=== PATIENT | male | born 1940 | race Caucasian/White ===

== ENCOUNTER 2020-08-24 10:11 | Emergency (ER) | payer MEDICARE, SELFPAY ==
[2020-08-24 10:12] VITALS: BP 163/74; PULSE 66; RESP 16; TEMP 37.4; O2SAT 98; BMI 24.1
--- NOTE | 2020-08-24 10:12 | DI.RAD.S_ITS ---
PROCEDURE: XR KNEE RT 3V INDICATIONS: fall pain TECHNIQUE: 3 views of the knee were acquired. COMPARISON: None. FINDINGS: Bones: There is a comminuted minimally displaced fracture through the midportion of the patella best seen on lateral view. [id number] medial and patellofemoral compartment narrowing consistent with arthritic change. Soft tissues: Moderate joint effusion. No suspicious soft tissue calcifications. IMPRESSION: Moderate effusion with comminuted minimally displaced mid patellar fracture. Dictated by: Magalie Quiles M.D. on 08/24/2020 at 11:34 Approved by: Magalie Quiles M.D. on 08/24/2020 at 11:35
--- NOTE | 2020-08-24 10:17 | ED.FALL ---
HPI - Fall <TG Newberry - Last Filed: 08/24/20 16:09> General Chief Complaint: Fall Stated Complaint: Right Knee Pain Time Seen by Provider: 08/24/20 10:12 Source: patient and EMS Mode of arrival: EMS History of Present Illness HPI Narrative: 79yo male presents to the ED for right knee pain. Patient states yesterday his left foot caught on some cobblestones while walking and he tripped and fell on his right knee, patient states he also hit his nose. Patient states he was immediately able to get up from the fall, denies any loss of consciousness, vomiting, is not on any blood thinners. Patient states he felt fine dressed today. However, overnight he started to develop more and more pain to his right knee. Today it hurts significantly more and is difficult to walk on, he reports swelling. Patient denies any other injury such as hip pain, ankle pain, chest pain, arm pain, fevers, chills, nausea, vomiting, diarrhea, or any other concerns. Related Data Previous Rx's Medication Instructions Recorded hydrocodone-acetaminophen [[place]] 1 tab PO Q4-6H PRN #14 tab 08/24/20 hydrocodone-acetaminophen [[place]] 1 tab PO Q4-6H PRN #20 tab 08/24/20 Allergies Allergy/AdvReac Type Severity Reaction Status Date / Time No Known Drug Allergies Allergy Verified 08/24/20 10:12 Review of Systems <TG Newberry - Last Filed: 08/24/20 16:09> Review of Systems Narrative: REVIEW OF SYSTEMS: GENERAL: Denies fevers. HENT: No headache, see HPI. CARDIOVASCULAR: No chest pain. RESPIRATORY: No shortness of breath. MSK: Reports right knee pain, see HPI. GASTROINTESTINAL: No nausea or vomiting. MUSCULOSKELETAL: No weakness or injury. INTEGUMENTARY: No rash. Patient History <TG Newberry - Last Filed: 08/24/20 16:09> Medical History No pertinent past medical history Social History Smoking Status: Never smoker Smoking Status: Never smoker alcohol intake frequency: 0-2 drinks per day Alcohol type: beer Substance Use Type: does not use Exam <TG Newberry - Last Filed: 08/24/20 16:09> Initial Vital Signs Initial Vital Signs: Vital Signs Temperature 99.3 F 08/24/20 10:12 Pulse Rate 66 08/24/20 10:12 Respiratory Rate 16 08/24/20 10:12 Blood Pressure 163/74 H 08/24/20 10:12 Pulse Oximetry 98 08/24/20 10:12 PHYSICAL EXAMINATION: GENERAL: Awake and alert. HENT: Normocephalic, atraumatic. EYES: Symmetrical, sclera white, no periorbital swelling. RESPIRATORY: Normal respiratory rate, trachea midline, airway patent. No stridor, nasal flaring or accessory muscle use. MUSCULOSKELETAL: Tenderness over patella and patellar tendon of right knee, pain with drawer test but knee is stable. [id number] amount of swelling, mild ecchymosis. No erythema, lesions, or increased temp. Normal gait and coordination. Equal tone and mass bilaterally. EXTREMITIES: CMS intact. No pedal edema. SKIN: Warm, dry, soft, appropriate color for ethnicity. No lesions, rashes, or wounds. NEURO: Alert and Oriented X 3. No sensory deficits. PSYCH: Appropriate affect and mood. <Rosa Herrera DO - Last Filed: 08/25/20 07:58> Initial Vital Signs Initial Vital Signs: Vital Signs Temperature 99.3 F 08/24/20 10:12 Pulse Rate 66 08/24/20 10:12 Respiratory Rate 16 08/24/20 10:12 Blood Pressure 163/74 H 08/24/20 10:12 Pulse Oximetry 98 08/24/20 10:12 Course <TG Newberry - Last Filed: 08/24/20 16:09> Course Course Narrative: Patient requesting pain medication, discussed risks and benefits to narcotics. 1137: I spoke with Dr. Gonzales, orthopedic, about x-ray. Recommended knee immobilizer and follow-up in clinic. Patient was updated on plan of care, requesting another dose of Vicodin, medications ordered. Orders Ordered: Discontinued Medications Hydrocodone Bitart/Acetaminophen (Hydrocodone/Acet 5/325 Tablet) 1 tab PO NOW ONE Stop: 08/24/20 10:54 Last Admin: 08/24/20 11:02 Dose: 1 tab Documented by: MYLA Hydrocodone Bitart/Acetaminophen (Hydrocodone/Acet 5/325 Tablet) 1 tab PO NOW ONE Stop: 08/24/20 11:53 Last Admin: 08/24/20 12:00 Dose: 1 tab Documented by: MYLA Consultations Consultation #1: Staffed with Dr. Herrera who also viewed x-ray. Vital Signs Vital signs: Vital Signs - 8 hr 08/24/20 10:12 08/24/20 11:55 08/24/20 12:44 Temperature 99.3 F Pulse Rate 66 65 Respiratory Rate 16 16 Blood Pressure 163/74 H 175/85 H 126/88 Pulse Oximetry 98 97 <Rosa Herrera DO - Last Filed: 08/25/20 07:58> Orders Ordered: Discontinued Medications Hydrocodone Bitart/Acetaminophen (Hydrocodone/Acet 5/325 Tablet) 1 tab PO NOW ONE Stop: 08/24/20 10:54 Last Admin: 08/24/20 11:02 Dose: 1 tab Documented by: MYLA Hydrocodone Bitart/Acetaminophen (Hydrocodone/Acet 5/325 Tablet) 1 tab PO NOW ONE Stop: 08/24/20 11:53 Last Admin: 08/24/20 12:00 Dose: 1 tab Documented by: MYLA Vital Signs Vital signs: Vital Signs - 8 hr 08/24/20 10:12 08/24/20 11:55 08/24/20 12:44 Temperature 99.3 F Pulse Rate 66 65 Respiratory Rate 16 16 Blood Pressure 163/74 H 175/85 H 126/88 Pulse Oximetry 98 97 MDM - Fall <TG Newberry - Last Filed: 08/24/20 16:09> Medical Records Attestation: I reviewed the patient's medical records. Lab Data Attestation: I reviewed the patient's lab results. Imaging Data Extremity x-ray #1: Radiologist's Impression: [address] [id number] ReportSigned Patient: Gil Aguilar AMR#: [id number]: 3Acct:[id number]/Sex: 79 / MDate of Service: 08/24/20Loc: EDAccession Number: [id number] Procedure: XR knee RT 3V Ordering Provider: Rosa Herrera D.O. PROCEDURE: XR KNEE RT 3V INDICATIONS: fall pain TECHNIQUE: 3 views of the knee were acquired. COMPARISON: None. FINDINGS: Bones: There is a comminuted minimally displaced fracture through the midportion of the patella best seen on lateral view. [id number] medial and patellofemoral compartment narrowing consistent with arthritic change. Soft tissues: Moderate joint effusion. No suspicious soft tissue calcifications. IMPRESSION: Moderate effusion with comminuted minimally displaced mid patellar fracture. Dictated by: Magalie Quiles M.D. on 08/24/2020 at 11:34 Approved by: Magalie Quiles M.D. on 08/24/2020 at 11:35 [facility] Narrative Medical decision making narrative: History and examination consistent with patella fracture as seen on x-ray. Less concern for other injuries due to benign examination. No CT of head indicated at this time, no concerning symptoms such as syncope or vomiting after fall. Patient not on any blood thinners. Discussed benefits and wrist to prescribing narcotic pain medication. Patient accepted, Vicodin prescribed. Patient was placed in knee immobilizer, crutches given. He was instructed to follow up with the orthopedic as suggested. Return precautions given for new or worsening symptoms. Discharge Plan Departure Patient Disposition: Home Clinical Impression: Patella fracture Qualifiers: Encounter type: initial encounter Fracture type: closed Fracture morphology: unspecified fracture morphology Fracture alignment: displaced Laterality: right Qualified Code(s): S82.001A - Unspecified fracture of right patella, initial encounter for closed fracture Instructions: DI for Patella Fracture, How to Prevent Falls Activity Restrictions/Additional Instructions: Thank you for entrusting me with your care today. As discussed, it appears you have a patella fracture to right knee. I spoke with orthopedic on-call, he recommended a straight leg immobilizer, keep this in place as much as possible. It is important that you follow-up in the orthopedic clinic. Be low as the phone number to call today or tomorrow to make an appointment. I prescribed you pain medication. You have been prescribed a narcotic medication, this medication can make you drowsy. Do not drive while using this medication or perform activities that require mental alertness. These medications can also make you constipated, please use [id number]-dheniys docusate sodium as needed for constipation. This medication also contains Tylenol, do not take extra Tylenol. This was sent to [facility] in [place]. Return emergency department for any new or worsening symptoms. Prescriptions: New hydrocodone-acetaminophen [[place]] 5-325 mg tablet 1 tab PO Q4-6H PRN (Reason: pain) Qty: 14 RF: 0 hydrocodone-acetaminophen [[place]] 5-325 mg tablet 1 tab PO Q4-6H PRN (Reason: pain) Qty: 20 RF: 0 Referrals: Keven Gonzales MD [Physician] - <Rosa Herrera DO - Last Filed: 08/25/20 07:58> Cosign ED Attending Timothyature Attestation: I was immediately available in the department for consultation. Documentation has been reviewed. I agree with assessment and plan.
[2020-08-24] MEDS: HYDROCODONE/ACET 5/325 TABLET 1 TAB PO ×2 (11:02→12:00)
[2020-08-24 11:55] VITALS: BP 175/85; PULSE 65; RESP 16; O2SAT 97
[2020-08-24 12:44] VITALS: BP 126/88
== END 2020-08-24 12:45 | disposition home or self-care (01) ==
PROVIDERS: Emergency Provider Nurse Practitioner
DX: S82.001A Unspecified fracture of right patella, initial encounter for closed fracture (principal); W01.0XXA Fall on same level from slipping, tripping and stumbling without subsequent striking against object, initial encounter
CPT/HCPCS: 73562; 99283

== ENCOUNTER 2021-06-09 10:27 | Emergency (ER) | payer MEDICARE, SELFPAY ==
[2021-06-09] VITALS (14 sets, daily range): BP systolic 154–177; BP diastolic 78–106; PULSE 64–91; RESP 18–34; TEMP 36.6; O2SAT 91–97
--- NOTE | 2021-06-09 10:35 | DI.RAD.S_ITS ---
PROCEDURE: XR CHEST 1V INDICATIONS: chest pain TECHNIQUE: One view of the chest was acquired. COMPARISON: [facility], CR, XR CHEST 1 VIEW, 04/30/2020, 11:27. FINDINGS: Surgical changes and devices: Postsurgical changes are redemonstrated in the mediastinum. Lungs and pleura: There are slightly low lung volumes. Mild pulmonary vascular prominence in the lung bases likely reflects vascular crowding with likely associated mild atelectasis. No pleural effusions or pneumothorax. Mediastinum: Mediastinal contours appear unchanged. Heart size is enlarged. Bones and chest wall: No suspicious bony lesions. Overlying soft tissues appear unremarkable. IMPRESSION: 1. Slightly low lung volumes with vascular crowding and likely atelectasis in the lung bases. No definite acute cardiopulmonary disease. Dictated by: Judson Foley M.D. on 06/09/2021 at 10:18 Approved by: Judson Foley M.D. on 06/09/2021 at 10:21
--- NOTE | 2021-06-09 10:48 | ED.ABDPAIN ---
HPI - Abdominal Pain General Chief Complaint: Neuro Symptoms/Deficit Stated Complaint: EXTREME STOMACH PAINS, ACTING FUNNY Time Seen by Provider: 06/09/21 10:44 History of Present Illness HPI narrative: Patient is a 80-year-old male who with history of diabetes, CAD with CABG, hypertension hyperlipidemia presenting with sudden onset of confusion and 2 days of abdominal pain. states that he has episodes of brief confusion where he put his hands up and he does not know where he is or what is happening. All the happened today and the car they were on their way to [place] when he had sudden episode of confusion however he was complaining of severe abdominal pain as well. He started pushing all of the buttons on the dashboard he was not able to communicate what he was doing. He did not have any slurring of speech she was moving all extremities. He has not had any fever or chills. No nausea or vomiting. He states that his abdomen no longer hurts. He seems to be back to normal and at his baseline. He denies any chest pain or palpitations. Related Data Home Medications Medication Instructions Recorded Confirmed buspirone 10 mg tablet 10 mg PO TID PRN 06/09/21 06/09/21 carvedilol 6.25 mg tablet 6.25 mg PO BID 06/09/21 06/09/21 finasteride 5 mg tablet 5 mg PO DAILY 06/09/21 06/09/21 insulin glargine 100 unit/mL (3 14 unit SUBCUT BID 06/09/21 06/09/21 mL) subcutaneous pen (Lantus Solostar U-100 Insulin) metformin 500 mg tablet,extended 1,000 mg PO BID 06/09/21 06/09/21 release 24 hr mirtazapine 15 mg tablet 15 mg PO BEDTIME 06/09/21 06/09/21 rosuvastatin 40 mg tablet 40 mg PO BEDTIME 06/09/21 06/09/21 tadalafil 20 mg tablet 20 mg PO DAILY 06/09/21 06/09/21 tamsulosin 0.4 mg capsule 0.4 mg PO DAILY 06/09/21 06/09/21 Previous Rx's Medication Instructions Recorded levofloxacin 750 mg tablet 750 mg PO DAILY 7 Days tab 06/09/21 metronidazole 500 mg tablet 500 mg PO Q8H 7 Days #21 tab 06/09/21 Allergies Allergy/AdvReac Type Severity Reaction Status Date / Time No Known Drug Allergies Allergy Verified 06/09/21 10:59 Review of Systems Review of Systems Narrative: GENERAL: Denies chills, fatigue, malaise, fever, sweats, travel HEENT: Denies sinus pain, ear pain, sore throat, difficulty swallowing, neck pain RESPIRATORY: Denies dyspnea, cough, wheezing, hemoptysis, sputum. CARDIOVASCULAR: Denies chest pain, palpitations, orthopnea, edema GASTROINTESTINAL: See HPI : Denies dysuria, frequency, incontinence, hematuria, urinary retention, flank pain. MUSCULOSKELETAL: Denies weakness, joint pain, or bony pain SKIN: No rash, no erythema, no pruritus NEUROLOGIC: See HPI PSYCHIATRIC: No concerning psychosocial issues. 12 point review of systems is negative except for those stated above and HPI Patient History Medical History (Updated 06/09/21 @ 12:47 by Rosa Herrera DO) No pertinent past medical history Surgical History (Updated 06/09/21 @ 11:05 by Keira Mcfarlane RN) H/O heart bypass surgery Social History Smoking Status: Never smoker Smoking Status: Never smoker alcohol intake frequency: 0-2 drinks per day Alcohol type: beer Substance Use Type: does not use Exam Initial Vital Signs Initial Vital Signs: Vital Signs Temperature 97.9 F 06/09/21 10:30 Pulse Rate 73 06/09/21 10:30 Respiratory Rate 32 H 06/09/21 10:30 Blood Pressure 177/106 H 06/09/21 10:30 Pulse Oximetry 91 06/09/21 10:30 GENERAL: Alert pleasant well-appearing 72 old male and in no acute distress. HEENT: Head atraumatic,EOMI, pupils reactive, face symmetric, moist mucous membranes CARDIOVASCULAR: Regular rate and rhythm without murmurs, rubs or gallops. RESPIRATORY: Breath sounds equal bilaterally, no wheezes rales or rhonchi. ABDOMEN: Soft, nontender. Normoactive bowel sounds all 4 quadrants. No guarding or rebound. EXTREMITIES: Normal range of motion, no clubbing or edema. Neurovascularly intact NEUROLOGICAL: Alert and oriented x4.Normal gait and speech. Cranial nerves II through XII grossly intact. Good [id number], good [id number], strength equal bilaterally, no dysarthria or aphasia, sensation in tact to soft touch bilaterally, no visual changes, no facial droop SKIN: Warm, dry, no laceration, no petechiae, no rashes or lesions. Scores NIH Stroke Scale Level of Conciousness: Alert, keenly responsive Ask month/age: Answers both questions correctly. Open/close eyes, close hand: Performs both tasks correctly Best gaze horizontal: Normal Visual camp: No visual loss Facial palsy: Normal symetrical movement Left arm drift: No drift for full 10 sec Right arm drift: No drift for full 10 sec Left leg drift: No drift for full 5 sec Right leg drift: No drift for full 5 sec Limb ataxia: Absent Sensory on face/arms/legs: Normal, no sensory loss Best language: No aphasia, normal Dysarthria: Normal Extinction or inattention: No abnormality Total NIH Stroke scale score: 0 Course Orders Ordered: ED Orders 06/09/21 10:35 XR chest 1V Stat EKG-12 Lead Stat 06/09/21 10:41 COVID19 -Nasal swab/Pre-Proc Stat 06/09/21 10:45 Complete Blood Count AUTO DIFF Stat Comprehensive Metabolic Panel Stat Lactate (Lactic Acid) Stat Lipase Stat Partial Thromboplastin Time Stat Procalcitonin Stat Prothrombin Time INR Stat Troponin & CK Cardiac Panel Stat 06/09/21 10:58 CT abdomen pelvis w con Stat CT head/brain wo con Stat Vital Signs Vital signs: Vital Signs - 8 hr 06/09/21 10:30 06/09/21 10:55 06/09/21 11:00 Temperature 97.9 F Pulse Rate 73 79 68 Respiratory Rate 32 H 34 H 29 H Blood Pressure 177/106 H 159/91 H Pulse Oximetry 91 94 95 06/09/21 11:10 06/09/21 11:15 06/09/21 11:20 Temperature Pulse Rate 73 67 67 Respiratory Rate 34 H 30 H 30 H Blood Pressure 158/89 H 154/84 H Pulse Oximetry 95 91 91 06/09/21 11:41 06/09/21 11:45 06/09/21 12:00 Temperature Pulse Rate 74 64 64 Respiratory Rate 32 H 34 H 27 H Blood Pressure Pulse Oximetry 95 97 91 06/09/21 12:15 06/09/21 12:30 06/09/21 12:45 Temperature Pulse Rate 84 67 91 H Respiratory Rate 30 H 20 Blood Pressure Pulse Oximetry 93 92 06/09/21 13:00 06/09/21 13:15 Temperature Pulse Rate 73 74 Respiratory Rate 18 Blood Pressure 158/78 H Pulse Oximetry 96 MDM - Abdominal Pain Lab Data Result diagrams: 06/09/21 10:45 06/09/21 10:45 Labs: Lab Results 06/09/21 06/09/21 06/09/21 Range/Units 10:41 10:45 10:45 WBC 6.9 (4.5-11.0) X10^3/uL RBC 4.30 L (4.5-5.9) X10^6/uL Hgb 14.0 (13.5-17.5) g/dL Hct 41.0 (41-53) % MCV 95.4 (80-100) fL MCH 32.6 (26-34) PG MCHC 34.2 (30-36) % RDW 13.0 (11.6-14.8) % Plt Count 228 (150-400) X10^3/uL Neut % (Auto) 62.9 (50-75) % Lymph % (Auto) 19.9 L (25-40) % [place] % (Auto) 12.1 (3-14) % Eos % (Auto) 3.9 (2-4) % Baso % (Auto) 1.2 (0-2) % Neut # (Auto) 4400 (0284-1618) /uL Lymph # (Auto) 1400 (9370-1164) /uL [place] # (Auto) 800 (0-900) /uL Eos # (Auto) 300 (0-450) /uL Baso # (Auto) 100 (0-100) /uL PT (10.1-12.7) SECONDS INR (0.9-1.3) APTT (26.4-36.2) SECONDS Sodium 139 (137-145) mmol/L Potassium 4.1 (3.4-5.1) mmol/L Chloride 104 (98-107) mmol/L Carbon Dioxide 27 (22-32) mmol/L BUN 13 (9-20) mg/dL Creatinine 0.85 (0.66-1.25) mg/dL Estimated GFR > 60.0 (>60) mL/min BUN/Creatinine Ratio 15.3 (6-22) Glucose 211 H (80-110) mg/dL Lactate (0.7-2.1) mmol/L Calcium 9.6 (8.4-10.2) mg/dL Total Bilirubin 0.8 (0.2-1.3) mg/dL AST 23 (17-59) IU/L ALT 27 (<50) IU/L Alkaline Phosphatase 68 (38-126) U/L Total Creatine Kinase 56 (55-170) U/L CK-MB (CK-2) TNP CK-MB (CK-2) Rel Index TNP Troponin I < 0.012 (0.01-0.034) ng/mL Total Protein 6.4 (6.3-8.2) g/dL Albumin 4.0 (3.5-5.0) g/dL Globulin 2.4 (1.7-4.1) g/dL Albumin/Globulin Ratio 1.7 (1.0-2.8) Lipase 42 (23-300) U/L Procalcitonin (<0.5) ng/mL SARS-CoV-2 (PCR) Negative (Negative) 06/09/21 06/09/21 06/09/21 Range/Units 10:45 10:45 10:45 WBC (4.5-11.0) X10^3/uL RBC (4.5-5.9) X10^6/uL Hgb (13.5-17.5) g/dL Hct (41-53) % MCV (80-100) fL MCH (26-34) PG MCHC (30-36) % RDW (11.6-14.8) % Plt Count (150-400) X10^3/uL Neut % (Auto) (50-75) % Lymph % (Auto) (25-40) % [place] % (Auto) (3-14) % Eos % (Auto) (2-4) % Baso % (Auto) (0-2) % Neut # (Auto) (0918-2126) /uL Lymph # (Auto) (4535-0972) /uL [place] # (Auto) (0-900) /uL Eos # (Auto) (0-450) /uL Baso # (Auto) (0-100) /uL PT 11.1 (10.1-12.7) SECONDS INR 1.0 (0.9-1.3) APTT 33 (26.4-36.2) SECONDS Sodium (137-145) mmol/L Potassium (3.4-5.1) mmol/L Chloride (98-107) mmol/L Carbon Dioxide (22-32) mmol/L BUN (9-20) mg/dL Creatinine (0.66-1.25) mg/dL Estimated GFR (>60) mL/min BUN/Creatinine Ratio (6-22) Glucose (80-110) mg/dL Lactate 1.5 (0.7-2.1) mmol/L Calcium (8.4-10.2) mg/dL Total Bilirubin (0.2-1.3) mg/dL AST (17-59) IU/L ALT (<50) IU/L Alkaline Phosphatase (38-126) U/L Total Creatine Kinase (55-170) U/L CK-MB (CK-2) CK-MB (CK-2) Rel Index Troponin I (0.01-0.034) ng/mL Total Protein (6.3-8.2) g/dL Albumin (3.5-5.0) g/dL Globulin (1.7-4.1) g/dL Albumin/Globulin Ratio (1.0-2.8) Lipase (23-300) U/L Procalcitonin 0.05 (<0.5) ng/mL SARS-CoV-2 (PCR) (Negative) Point of care testing: Urine Dip Bedside Urine Glucose 250 mg/dl Bedside Urine Bilirubin - Negative Bedside Urine Ketone - Negative Urine Specific [place] 1.020 Bedside Urine Occult Blood - Negative Bedside Urine pH 6.0 Bedside Urine Protein - Negative Bedside Urine Urobilinogen - Negative Bedside Urine Nitrite - Negative Bedside Urine Leukocytes - Negative Esterase Imaging Data CT scan - head: Radiologist's Impression: PROCEDURE:? CT HEAD/BRAIN WO CON ? INDICATIONS:? Confusion, now resolved ? TECHNIQUE:? Noncontrast 4.5 mm thick angled axial sections acquired from the foramen magnum to the vertex, with coronal and sagittal reformats.? For radiation dose reduction, the following was used:? automated exposure control, adjustment of mA and/or kV according to patient size.? ? COMPARISON:? [facility], MR, MR BRAIN WITHOUT CONTRAST, 05/02/2020, 8:43.? [facility], CT, CT HEAD WITHOUT CONTRAST, 04/30/2020, 10:54. ? FINDINGS:? Image quality:? Excellent.? ? CSF spaces:? Basal cisterns are patent.? No extra-axial fluid collections.? There is moderate cerebral volume loss, with resultant ventricular and sulcal prominence.? ? Brain:? No intracranial hemorrhage, mass, or mass effect.? There are subcortical, periventricular and deep white matter hypodensities consistent with moderate chronic small vessel ischemic changes.? The pena-white matter junction appears preserved.? There is intracranial internal carotid artery atherosclerosis.? ? Skull and face:? Calvarium and visualized facial bones appear intact, without suspicious lesions.? ? Sinuses:? Visualized sinuses and mastoids are clear.? ? IMPRESSION:? ? 1. No acute intracranial abnormality. ? 2. Moderate cerebral volume loss and chronic white matter small vessel ischemic changes.? Dictated by: Judson Foley M.D. on 06/09/2021 at 10:48 ? ? CT scan - abdomen/pelvis: Radiologist's Impression: PROCEDURE:? CT ABDOMEN PELVIS W CON ? INDICATIONS:? pain ? TECHNIQUE:? After the administration of IV contrast, axial sections were acquired from the lung bases to the pubic symphysis.? Coronal and sagittal reformats were performed.? For radiation dose reduction, the following was used:? automated exposure control, adjustment of mA and/or kV according to patient size. ? COMPARISON:? None. ? FINDINGS:? Image quality:? Excellent.? ? Lung bases:? There is dependent atelectasis bilaterally.? In addition, there are areas of ground-glass opacity in the left lower lobe and lingula which may represent an infectious or inflammatory process.? There is a small hiatal hernia. Heart:? Heart size is enlarged. ? ? ABDOMEN: Liver:? Unremarkable.? ? Gallbladder:? Multiple gallstones including calcified stones are demonstrated within a nondistended gallbladder.? There is soft tissue thickening in the region of the gallbladder fundus. Biliary ducts:? Unremarkable.? ? Pancreas:? Unremarkable.? ? Spleen:? Unremarkable.? ? Adrenal Glands:? No discrete nodules.? There is mild thickening of the adrenal glands bilaterally.? ? Kidneys and Ureters:? No hydronephrosis.? ? ? Stomach and Bowel:? Stomach and small bowel loops are normal in caliber and wall thickness.? The appendix is normal in appearance.? There are segments of mild colonic wall thickening and pericolonic fat stranding involving the ascending colon as well as the sigmoid colon consistent with probable infectious or inflammatory colitis.? There are few colonic diverticula without acute diverticulitis. Peritoneum:? No abnormal intraperitoneal fluid.? No free air.? ? Ventral Wall: ? No hernia.? Abdominal Nodes:? No retroperitoneal or mesenteric adenopathy by size criteria.? Vessels:? Aorta and inferior vena cava are normal in size.? ? PELVIS: Pelvic Organs:? There is marked heterogeneous enlargement of the prostate. Bladder:? There is concentric bladder wall thickening and trabeculation with small diverticula.? Findings are consistent sequelae of chronic bladder outlet obstruction. Pelvic Nodes: No enlarged lymph nodes.? Miscellaneous:? There are bilateral fat-containing inguinal hernias, small on the right and moderate on the left.? A small amount of fluid and fat stranding is demonstrated within the left hernia.? No evidence of bowel herniation. ? Bones:? Visualized osseous structures demonstrate no suspicious focal lesions. ? IMPRESSION:? ? 1. Segments of colonic wall thickening and pericolonic fat stranding demonstrated in the ascending and sigmoid colon consistent with an infectious or inflammatory colitis. ? 2. Bandlike areas of ground-glass opacity in the left lung base may reflect atelectasis versus an infectious or inflammatory process. ? 3. Marked heterogeneous enlargement of the prostate suggestive of BPH.? Recommend correlation clinically. ? 4. Bladder wall thickening and trabeculation with small bladder diverticula consistent with sequelae of chronic bladder outlet obstruction. ? 5. Bilateral inguinal hernias including a moderate-sized inguinal containing fat stranding amount fluid.? Herniated bowel loops. ? 6. Small hiatal hernia.? ? ? Dictated by: Judson Foley M.D. on 06/09/2021 at 11:04 ? ? ECG Data Interpretation: Sinus rhythm rate 71 SC interval 158 QRS 130 QTC 439 rib bundle branch block noted no ST T changes PVC noted no priors MDM Narrative Medical decision making narrative: Patient is overall feeling better. He has frequent episodes of confusion which do not seem to last long. says that he was evaluated by neurologist but he got extremely frustrated with the evaluation and felt like the doctor was asking the same question multiple ways got up and walked out of the appointment. His he does have some mild colitis noted on CT he is afebrile without leukocytosis. I discussed with both he and his antibiotics versus conservative treatment. At this time we all feel that his worsening episode of confusion today maybe of exacerbated by the colitis in the pain. So will treat him with Levaquin and Flagyl because Cipro is not stocked at the pharmacies due to a shortage. Patient has no focal deficits. Head CT is negative. Other blood work is reassuring. All of his doctors are at [facility] Discharge Plan Departure Patient Disposition: Home Clinical Impression: Colitis Activity Restrictions/Additional Instructions: *You have been diagnosed with colitis *What to do: Antibiotics hopefully will help your stomach get better. Please follow-up with Neurology about your confusion episodes. There is no evidence of stroke today. *Continue to take medications as directed Flagyl 500 mg 3 times a day for 7 days--> SENT TO [facility] Levaquin once a day for 7 days *Follow up with your primary care provider in 2-3 days *Return to ER if you should have increasing confusion, weakness, numbness, tingling, abdominal pain, fever or any new, worsening or concerning symptoms Prescriptions: New levofloxacin 750 mg tablet 750 mg PO DAILY 7 Days 0RF metronidazole 500 mg tablet 500 mg PO Q8H 7 Days Qty: 21 0RF No Action carvedilol 6.25 mg tablet 6.25 mg PO BID 0RF tamsulosin 0.4 mg capsule 0.4 mg PO DAILY 0RF buspirone 10 mg tablet 10 mg PO TID PRN (Reason: Anxiety) 0RF mirtazapine 15 mg tablet 15 mg PO BEDTIME 0RF metformin 500 mg tablet extended release 24 hr 1,000 mg PO BID 0RF finasteride 5 mg tablet 5 mg PO DAILY 0RF rosuvastatin 40 mg tablet 40 mg PO BEDTIME 0RF tadalafil 20 mg tablet 20 mg PO DAILY 0RF Lantus Solostar U-100 Insulin 100 unit/mL (3 mL) insulin pen 14 unit SUBCUT BID 0RF
[2021-06-09 10:55] LABS: Add Manual Diff / Slide Review NO; Basophils Absolute Auto 100 /uL (0-100); Basophils Percent Auto 1.2 % (0-2); Eosinophils Absolute Auto 300 /uL (0-450); Eosinophils Percent Auto 3.9 % (2-4); Lymphocytes Absolute Auto 1400 /uL (1100-4500); Lymphocytes Percent Auto 19.9 % (25-40); Mean Corpuscular HGB Conc 34.2 % (30-36); Mean Corpuscular Hemoglobin 32.6 PG (26-34); Mean Corpuscular Volume 95.4 fL (80-100); Monocytes Absolute Auto 800 /uL (0-900); Monocytes Percent Auto 12.1 % (3-14); Neutrophils Absolute Auto 4400 /uL (1500-7000); Neutrophils Percent Auto 62.9 % (50-75); Platelet Count 228 X10^3/uL (150-400); White Blood Cell Count 6.9 X10^3/uL (4.5-11.0)
--- NOTE | 2021-06-09 10:58 | DI.CT.S_ITS ---
PROCEDURE: CT HEAD/BRAIN WO CON INDICATIONS: Confusion, now resolved TECHNIQUE: Noncontrast 4.5 mm thick angled axial sections acquired from the foramen magnum to the vertex, with coronal and sagittal reformats. For radiation dose reduction, the following was used: automated exposure control, adjustment of mA and/or kV according to patient size. COMPARISON: [facility], MR, MR BRAIN WITHOUT CONTRAST, 05/02/2020, 8:43. [facility], CT, CT HEAD WITHOUT CONTRAST, 04/30/2020, 10:54. FINDINGS: Image quality: Excellent. CSF spaces: Basal cisterns are patent. No extra-axial fluid collections. There is moderate cerebral volume loss, with resultant ventricular and sulcal prominence. Brain: No intracranial hemorrhage, mass, or mass effect. There are subcortical, periventricular and deep white matter hypodensities consistent with moderate chronic small vessel ischemic changes. The pena-white matter junction appears preserved. There is intracranial internal carotid artery atherosclerosis. Skull and face: Calvarium and visualized facial bones appear intact, without suspicious lesions. Sinuses: Visualized sinuses and mastoids are clear. IMPRESSION: 1. No acute intracranial abnormality. 2. Moderate cerebral volume loss and chronic white matter small vessel ischemic changes. Dictated by: Judson Foley M.D. on 06/09/2021 at 10:48 Approved by: Judson Foley M.D. on 06/09/2021 at 10:50
--- NOTE | 2021-06-09 10:58 | DI.CT.S_ITS ---
PROCEDURE: CT ABDOMEN PELVIS W CON INDICATIONS: pain TECHNIQUE: After the administration of IV contrast, axial sections were acquired from the lung bases to the pubic symphysis. Coronal and sagittal reformats were performed. For radiation dose reduction, the following was used: automated exposure control, adjustment of mA and/or kV according to patient size. COMPARISON: None. FINDINGS: Image quality: Excellent. Lung bases: There is dependent atelectasis bilaterally. In addition, there are areas of ground-glass opacity in the left lower lobe and lingula which may represent an infectious or inflammatory process. There is a small hiatal hernia. Heart: Heart size is enlarged. ABDOMEN: Liver: Unremarkable. Gallbladder: Multiple gallstones including calcified stones are demonstrated within a nondistended gallbladder. There is soft tissue thickening in the region of the gallbladder fundus. Biliary ducts: Unremarkable. Pancreas: Unremarkable. Spleen: Unremarkable. Adrenal Glands: No discrete nodules. There is mild thickening of the adrenal glands bilaterally. Kidneys and Ureters: No hydronephrosis. Stomach and Bowel: Stomach and small bowel loops are normal in caliber and wall thickness. The appendix is normal in appearance. There are segments of mild colonic wall thickening and pericolonic fat stranding involving the ascending colon as well as the sigmoid colon consistent with probable infectious or inflammatory colitis. There are few colonic diverticula without acute diverticulitis. Peritoneum: No abnormal intraperitoneal fluid. No free air. Ventral Wall: No hernia. Abdominal Nodes: No retroperitoneal or mesenteric adenopathy by size criteria. Vessels: Aorta and inferior vena cava are normal in size. PELVIS: Pelvic Organs: There is marked heterogeneous enlargement of the prostate. Bladder: There is concentric bladder wall thickening and trabeculation with small diverticula. Findings are consistent sequelae of chronic bladder outlet obstruction. Pelvic Nodes: No enlarged lymph nodes. Miscellaneous: There are bilateral fat-containing inguinal hernias, small on the right and moderate on the left. A small amount of fluid and fat stranding is demonstrated within the left hernia. No evidence of bowel herniation. Bones: Visualized osseous structures demonstrate no suspicious focal lesions. IMPRESSION: 1. Segments of colonic wall thickening and pericolonic fat stranding demonstrated in the ascending and sigmoid colon consistent with an infectious or inflammatory colitis. 2. Bandlike areas of ground-glass opacity in the left lung base may reflect atelectasis versus an infectious or inflammatory process. 3. Marked heterogeneous enlargement of the prostate suggestive of BPH. Recommend correlation clinically. 4. Bladder wall thickening and trabeculation with small bladder diverticula consistent with sequelae of chronic bladder outlet obstruction. 5. Bilateral inguinal hernias including a moderate-sized inguinal containing fat stranding amount fluid. Herniated bowel loops. 6. Small hiatal hernia. Dictated by: Judson Foley M.D. on 06/09/2021 at 11:04 Approved by: Judson Foley M.D. on 06/09/2021 at 11:12
[2021-06-09 11:08] LABS: Prothrombin Time 11.1 SECONDS (10.1-12.7)
[2021-06-09 11:10] LABS: PTT Partial Thromboplastin Tim 33 SECONDS (26.4-36.2)
[2021-06-09 11:12] LABS: Alanine Aminotransferase 27 IU/L (<50); Albumin Globulin Ratio 1.7 (1.0-2.8); Alkaline Phosphatase 68 U/L (38-126); Aspartate Aminotransferase 23 IU/L (17-59); BUN Creatinine Ratio 15.3 (6-22); Bilirubin Total 0.8 mg/dL (0.2-1.3); Blood Urea Nitrogen 13 mg/dL (9-20); Calcium 9.6 mg/dL (8.4-10.2); Carbon Dioxide 27 mmol/L (22-32); Chloride 104 mmol/L (98-107); Creatine Kinase 56 U/L (55-170); Estimated Glomerular Filt Rate > 60.0 mL/min (>60); Globulin 2.4 g/dL (1.7-4.1); Glucose 211 mg/dL (80-110); HEMOLYSIS < 15 (0-50); Lipase 42 U/L (23-300); Potassium 4.1 mmol/L (3.4-5.1); Sodium 139 mmol/L (137-145); Total Protein 6.4 g/dL (6.3-8.2)
[2021-06-09 11:13] LABS: Lactate (Lactic Acid) 1.5 mmol/L (0.7-2.1)
[2021-06-09 11:21] LABS: COVID19 -Nasal RAPID Negative (Negative)
[2021-06-09 11:24] LABS: Troponin I < 0.012 ng/mL (0.01-0.034)
[2021-06-09 11:29] LABS: Procalcitonin 0.05 ng/mL (<0.5)
== END 2021-06-09 13:35 | disposition home or self-care (01) ==
PROVIDERS: Emergency Provider Emergency Medicine
DX: K52.9 Noninfective gastroenteritis and colitis, unspecified (principal); R41.0 Disorientation, unspecified; I45.10 Unspecified right bundle-branch block; Z95.1 Presence of aortocoronary bypass graft; Z20.822 Contact with and (suspected) exposure to COVID-19
CPT/HCPCS: 36415; 70450; 71045; 74177; 80053; 81003; 82550; 83605; 83690; 84145; 84484; 85025; 85610; 85730; 87635; 93005; 93010; 99284; C9803; Q9967

== ENCOUNTER 2021-07-28 10:06 | Emergency (ER) | payer MEDICARE, SELFPAY ==
[2021-07-28 10:24] VITALS: BP 159/77; PULSE 92; RESP 18; TEMP 36.7; O2SAT 96; BMI 25.0
[2021-07-28] MEDS: SODIUM CHLORIDE 0.9% 1,000 ML 1000 ML IV (10:45)
--- NOTE | 2021-07-28 10:54 | ED_ITS ---
HPI - General Adult General Chief complaint: Diabetic Problem Stated complaint: Diabetic episode. Referred by Medics Time Seen by Provider: 07/28/21 10:07 Source: patient and family Mode of arrival: Ambulatory History of Present Illness HPI narrative: Patient is a 80-year-old male. Is a insulin-dependent diabetic. Has a history of coronary artery disease. States this morning he woke up in his normal state health. Took his blood sugar. It was at a level where he would normally give himself 16 units of insulin. He did administer this to himself. Initially felt fine however as time went on he started to not feel very well. Became somewhat lightheaded. Had some nausea and vomiting. Asked his to contact EMS. When they arrived at the house they checked his blood sugar as well. It was above 200. He stated that he gradually started to improve. Decided that he wanted to come to the emergency department by private vehicle. His drove him here. They did stop and eat in route to the ER. By the time he arrives h ere he states that he feels fine and is completely normal. Related Data Home Medications Medication Instructions Recorded Confirmed buspirone 10 mg tablet 10 mg PO TID PRN 06/09/21 06/09/21 carvedilol 6.25 mg tablet 6.25 mg PO BID 06/09/21 06/09/21 finasteride 5 mg tablet 5 mg PO DAILY 06/09/21 06/09/21 insulin glargine 100 unit/mL (3 14 unit SUBCUT BID 06/09/21 06/09/21 mL) subcutaneous pen (Lantus Solostar U-100 Insulin) metformin 500 mg tablet,extended 1,000 mg PO BID 06/09/21 06/09/21 release 24 hr mirtazapine 15 mg tablet 15 mg PO BEDTIME 06/09/21 06/09/21 rosuvastatin 40 mg tablet 40 mg PO BEDTIME 06/09/21 06/09/21 tadalafil 20 mg tablet 20 mg PO DAILY 06/09/21 06/09/21 tamsulosin 0.4 mg capsule 0.4 mg PO DAILY 06/09/21 06/09/21 Allergies Allergy/AdvReac Type Severity Reaction Status Date / Time No Known Drug Allergies Allergy Verified 06/09/21 10:59 Review of Systems Constitutional Constitutional: Reports as per HPI and Reports system reviewed and no additional complaints, except as documented ENT Ears, Nose, Mouth, and Throat: Reports dizziness Cardiovascular Cardiovascular: Denies chest pain and Denies dyspnea Respiratory Respiratory: Denies dyspnea Gastrointestinal Gastrointestinal: Reports as per HPI and Reports system reviewed and no additional complaints, except as documented Genitourinary Genitourinary: Reports system reviewed and no additional complaints, except as documented Integumentary/Breasts Skin/Breast: Reports system reviewed and no additional complaints, except as documented Neurologic Neurologic: Reports dizziness Hematologic/Lymphatic On Anticoagulants: No Patient History Medical History No pertinent past medical history Surgical History (Updated 06/09/21 @ 11:05 by Keira Mcfarlane RN) H/O heart bypass surgery Social History Smoking Status: Never smoker Smoking Status: Never smoker alcohol intake frequency: 0-2 drinks per day Alcohol type: beer Substance Use Type: does not use Exam Initial Vital Signs Initial Vital Signs: Vital Signs Temperature 98.0 F 07/28/21 10:24 Pulse Rate 92 H 07/28/21 10:24 Respiratory Rate 18 07/28/21 10:24 Blood Pressure 159/77 H 07/28/21 10:24 Pulse Oximetry 96 07/28/21 10:24 HENMT Head: normal to inspection and normocephalic Resp Effort & Inspection: normal respiratory effort Auscultation: clear to auscultation bilaterally Cardio Rate: regular rate Rhythm: regular rhythm GI Inspection: normal to inspection Skin General: no rashes or lesions noted Neuro General: patient alert, patient awake, patient oriented x3 and moves all extremities Gait: normal gait Extrem General: normal to inspection and capillary refill normal Psych Appearance: grossly normal Scores GCS [place] coma scale eye opening: Spontaneous Rachel coma scale verbal response: Orientated Rachel coma scale motor response: Obey commands [place] coma scale total score: 15 Course Orders Ordered: ED Orders 07/28/21 10:30 Complete Blood Count AUTO DIFF Stat Comprehensive Metabolic Panel Stat Ketones (Beta-Hydroxybutyrate) Stat Lipase Stat Magnesium Stat Phosphorous Stat Troponin & CK Cardiac Panel Stat 07/28/21 10:35 EKG-12 Lead Stat Discontinued Medications Sodium Chloride (Normal Saline 0.9%) 1,000 mls @ 1,000 mls/hr IV BOLUS ONE Stop: 07/28/21 11:33 Last Admin: 07/28/21 10:45 Dose: 1,000 mls/hr Documented by: MALISSASE Vital Signs Vital signs: Vital Signs - 8 hr 07/28/21 10:24 Temperature 98.0 F Pulse Rate 92 H Respiratory Rate 18 Blood Pressure 159/77 H Pulse Oximetry 96 Medical Decision Making Lab Data Result diagrams: 07/28/21 10:30 07/28/21 10:30 Labs: Lab Results 07/28/21 07/28/21 Range/Units 10:30 10:30 WBC 12.8 H (4.5-11.0) X10^3/uL RBC 4.98 (4.5-5.9) X10^6/uL Hgb 16.2 (13.5-17.5) g/dL Hct 47.8 (41-53) % MCV 95.8 (80-100) fL MCH 32.4 (26-34) PG MCHC 33.8 (30-36) % RDW 12.9 (11.6-14.8) % Plt Count 253 (150-400) X10^3/uL Neut % (Auto) 81.8 H (50-75) % Lymph % (Auto) 8.4 L (25-40) % [place] % (Auto) 8.4 (3-14) % Eos % (Auto) 0.8 L (2-4) % Baso % (Auto) 0.6 (0-2) % Neut # (Auto) 60719 H (0418-9188) /uL Lymph # (Auto) 1100 (8968-6405) /uL [place] # (Auto) 1100 H (0-900) /uL Eos # (Auto) 100 (0-450) /uL Baso # (Auto) 100 (0-100) /uL Sodium 140 (137-145) mmol/L Potassium 4.2 (3.4-5.1) mmol/L Chloride 100 (98-107) mmol/L Carbon Dioxide 34 H (22-32) mmol/L BUN 18 (9-20) mg/dL Creatinine 1.05 (0.66-1.25) mg/dL Estimated GFR > 60.0 (>60) mL/min BUN/Creatinine Ratio 17.1 (6-22) Glucose 245 H (80-110) mg/dL Calcium 10.0 (8.4-10.2) mg/dL Phosphorus 3.3 (2.3-3.7) mg/dL Magnesium 1.7 (1.6-2.3) mg/dL Total Bilirubin 0.9 (0.2-1.3) mg/dL AST 28 (17-59) IU/L ALT 30 (<50) IU/L Alkaline Phosphatase 74 (38-126) U/L Total Creatine Kinase 70 (55-170) U/L CK-MB (CK-2) TNP CK-MB (CK-2) Rel Index TNP Troponin I < 0.012 (0.01-0.034) ng/mL Total Protein 7.6 (6.3-8.2) g/dL Albumin 4.7 (3.5-5.0) g/dL Globulin 2.9 (1.7-4.1) g/dL Albumin/Globulin Ratio 1.6 (1.0-2.8) Lipase 41 (23-300) U/L Ketones 0.22 (<0.27) mmol/L Point of Care Testing Glucose POC 228 Urine Dip Bedside Urine Glucose 250 mg/dl Bedside Urine Bilirubin - Negative Bedside Urine Ketone - Negative Urine Specific [place] 1.030 Bedside Urine Occult Blood +/- Bedside Urine pH 6.0 Bedside Urine Protein + 30 Bedside Urine Urobilinogen 0.2 Bedside Urine Nitrite - Negative Bedside Urine Leukocytes - Negative Esterase Point of care testing: Point of Care Testing Glucose POC 228 Urine Dip Bedside Urine Glucose 250 mg/dl Bedside Urine Bilirubin - Negative Bedside Urine Ketone - Negative Urine Specific [place] 1.030 Bedside Urine Occult Blood +/- Bedside Urine pH 6.0 Bedside Urine Protein + 30 Bedside Urine Urobilinogen 0.2 Bedside Urine Nitrite - Negative Bedside Urine Leukocytes - Negative Esterase ECG Data Attestation: I personally reviewed and interpreted this ECG as follows: Prior ECG tracings: available for review Interpretation: Sinus rhythm Ventricular rate 82 Normal axis Right bundle branch block QRS 1-[address] T wave changes Unchanged from prior EKG MDM Narrative Medical decision making narrative: Patient states that he feels normal and has felt normal since he arrived here in the ER. His labs are relatively unremarkable no indication of DKA. Has a slight leukocytosis but I suspect that this is stress reaction given all of the vomiting that he had this morning. His abdomen is soft. EKG is unchanged. Troponin is negative. Will have patient continue to take his medications as directed. He is given strict return precautions. He expressed understanding and agreement. Discharge Plan Departure Patient Disposition: Home Clinical Impression: Hyperglycemia Instructions: DI for Hyperglycemia -- Adult Activity Restrictions/Additional Instructions: I do recommend that you continue all of your medications as directed. Contact your primary doctor for a follow-up. Return to the emergency department for any new or worsening symptoms. Prescriptions: No Action carvedilol 6.25 mg tablet 6.25 mg PO BID 0RF tamsulosin 0.4 mg capsule 0.4 mg PO DAILY 0RF buspirone 10 mg tablet 10 mg PO TID PRN (Reason: Anxiety) 0RF mirtazapine 15 mg tablet 15 mg PO BEDTIME 0RF metformin 500 mg tablet extended release 24 hr 1,000 mg PO BID 0RF finasteride 5 mg tablet 5 mg PO DAILY 0RF rosuvastatin 40 mg tablet 40 mg PO BEDTIME 0RF tadalafil 20 mg tablet 20 mg PO DAILY 0RF Lantus Solostar U-100 Insulin 100 unit/mL (3 mL) insulin pen 14 unit SUBCUT BID 0RF
[2021-07-28 10:55] LABS: Blood Urea Nitrogen 18 mg/dL (9-20); Carbon Dioxide 34 mmol/L (22-32); Chloride 100 mmol/L (98-107); Creatine Kinase 70 U/L (55-170); Potassium 4.2 mmol/L (3.4-5.1); Sodium 140 mmol/L (137-145)
[2021-07-28 10:56] LABS: Alanine Aminotransferase 30 IU/L (<50); Albumin 4.7 g/dL (3.5-5.0); Albumin Globulin Ratio 1.6 (1.0-2.8); Alkaline Phosphatase 74 U/L (38-126); Aspartate Aminotransferase 28 IU/L (17-59); BUN Creatinine Ratio 17.1 (6-22); Bilirubin Total 0.9 mg/dL (0.2-1.3); Estimated Glomerular Filt Rate > 60.0 mL/min (>60); Globulin 2.9 g/dL (1.7-4.1); Glucose 245 mg/dL (80-110); HEMOLYSIS < 15 (0-50); Lipase 41 U/L (23-300); Magnesium 1.7 mg/dL (1.6-2.3); Phosphorous 3.3 mg/dL (2.3-3.7); Total Protein 7.6 g/dL (6.3-8.2)
[2021-07-28 10:57] LABS: Add Manual Diff / Slide Review NO; Basophils Absolute Auto 100 /uL (0-100); Basophils Percent Auto 0.6 % (0-2); Eosinophils Absolute Auto 100 /uL (0-450); Eosinophils Percent Auto 0.8 % (2-4); Hematocrit 47.8 % (41-53); Hemoglobin 16.2 g/dL (13.5-17.5); Lymphocytes Absolute Auto 1100 /uL (1100-4500); Lymphocytes Percent Auto 8.4 % (25-40); Mean Corpuscular HGB Conc 33.8 % (30-36); Mean Corpuscular Hemoglobin 32.4 PG (26-34); Mean Corpuscular Volume 95.8 fL (80-100); Monocytes Absolute Auto 1100 /uL (0-900); Monocytes Percent Auto 8.4 % (3-14); Neutrophils Absolute Auto 10500 /uL (1500-7000); Neutrophils Percent Auto 81.8 % (50-75); Platelet Count 253 X10^3/uL (150-400); Red Blood Cell Count 4.98 X10^6/uL (4.5-5.9); Red Cell Distribution Width 12.9 % (11.6-14.8); White Blood Cell Count 12.8 X10^3/uL (4.5-11.0)
[2021-07-28 10:58] LABS: Ketones (Beta-Hydroxybutyrate) 0.22 mmol/L (<0.27)
[2021-07-28 11:09] LABS: Troponin I < 0.012 ng/mL (0.01-0.034)
[2021-07-28 11:54] VITALS: BP 161/79; PULSE 85; RESP 17; O2SAT 94
== END 2021-07-28 11:56 | disposition home or self-care (01) ==
PROVIDERS: Emergency Provider Emergency Medicine
DX: E11.65 Type 2 diabetes mellitus with hyperglycemia (principal); Z79.4 Long term (current) use of insulin; Z79.84 Long term (current) use of oral hypoglycemic drugs
CPT/HCPCS: 36415; 80053; 81003; 82009; 82550; 82962; 83690; 83735; 84100; 84484; 85025; 93005; 93010; 99284

== ENCOUNTER 2021-11-26 16:32 | Emergency (ER) | payer MEDICARE, SELFPAY ==
[2021-11-26 17:04] VITALS: BP 144/86; PULSE 87; RESP 16; TEMP 36.8; O2SAT 97; BMI 25.4
--- NOTE | 2021-11-26 20:16 | ED_ITS ---
HPI - URI/Sore Throat General Chief Complaint: Upper Respiratory Symptoms Stated Complaint: COLD LIKE SYMPTOMS NEEDS TO BE TEST FOR COVID Time Seen by Provider: 11/26/21 17:54 Source: patient Mode of arrival: Ambulatory History of Present Illness HPI Narrative: 81-year-old male with noncontributory medical history presents with his with similar although slightly worse symptoms. He wants to be tested for COVID. He has some runny nose and sneezing but denies any sore throat or cough. He has no chest pain or shortness of breath. He denies fever, chills or GI symptoms such as nausea, vomiting or diarrhea. Related Data Home Medications Medication Instructions Recorded Confirmed buspirone 10 mg tablet 10 mg PO TID PRN 06/09/21 06/09/21 carvedilol 6.25 mg tablet 6.25 mg PO BID 06/09/21 06/09/21 finasteride 5 mg tablet 5 mg PO DAILY 06/09/21 06/09/21 insulin glargine 100 unit/mL (3 14 unit SUBCUT BID 06/09/21 06/09/21 mL) subcutaneous pen (Lantus Solostar U-100 Insulin) metformin 500 mg tablet,extended 1,000 mg PO BID 06/09/21 06/09/21 release 24 hr mirtazapine 15 mg tablet 15 mg PO BEDTIME 06/09/21 06/09/21 rosuvastatin 40 mg tablet 40 mg PO BEDTIME 06/09/21 06/09/21 tadalafil 20 mg tablet 20 mg PO DAILY 06/09/21 06/09/21 tamsulosin 0.4 mg capsule 0.4 mg PO DAILY 06/09/21 06/09/21 Allergies Allergy/AdvReac Type Severity Reaction Status Date / Time No Known Drug Allergies Allergy Verified 06/09/21 10:59 Review of Systems Review of Systems Narrative: GENERAL: D see HPI HEENT: See HPI RESPIRATORY: See HPI CARDIOVASCULAR: Denies chest pain, palpitations, orthopnea, edema, GASTROINTESTINAL: Denies nausea, vomiting, abdominal pain, diarrhea, constipation, melena. : Denies dysuria, frequency, incontinence, hematuria, urinary retention. MUSCULOSKELETAL: denies weakness, joint pain, or bony pain SKIN: Denies rash, skin lesions, or other NEUROLOGIC: Denies weakness, headache, numbness, change in speech, confusion, seizures, incoordination. PSYCHIATRIC: No concerning psychosocial issues. 12 point review of systems is negative except for those stated above Patient History Medical History No pertinent past medical history Surgical History H/O heart bypass surgery Social History Smoking Status: Never smoker Smoking Status: Never smoker alcohol intake frequency: 0-2 drinks per day Alcohol type: beer Substance Use Type: does not use Exam Narrative Exam Narrative: GENERAL: [81] year old patient appears stated age. Well-developed patient, in mild distress. HEAD: Atraumatic. Normocephalic. EYES: Pupils equal round and reactive. Extraocular motions intact. No scleral icterus. No injection or drainage. ENT: Nose without bleeding, purulent drainage. Throat without erythema, tonsillar hypertrophy or exudate. Airway patent. NECK: Trachea midline. Non tender CARDIOVASCULAR: Regular rate and rhythm without murmurs, gallops, or rubs. RESPIRATORY: Clear to auscultation. Breath sounds equal bilaterally. No wheezes, rales, or rhonchi. GASTROINTESTINAL: Abdomen soft, non-tender, nondistended. EXTREMITIES: No edema or joint tenderness. BACK: Nontender without deformity or crepitance. No flank tenderness. NEURO: AOx3. SKIN: No rash or erythema of visible areas Initial Vital Signs Initial Vital Signs: Vital Signs Temperature 98.3 F 11/26/21 17:04 Pulse Rate 87 11/26/21 17:04 Respiratory Rate 16 11/26/21 17:04 Blood Pressure 144/86 H 11/26/21 17:04 Pulse Oximetry 97 11/26/21 17:04 Course Orders Ordered: ED Orders 11/26/21 17:54 COVID19 -Nasal RAPID/Pre-Proc Stat Vital Signs Vital signs: Vital Signs - 8 hr 11/26/21 17:04 Temperature 98.3 F Pulse Rate 87 Respiratory Rate 16 Blood Pressure 144/86 H Pulse Oximetry 97 MDM - URI/Sore Throat MDM Narrative Medical decision making narrative: Patient's as worse symptoms and is COVID positive, we offered COVID testing to this patient but he would prefer we do not. We discussed that he should consider himself to be COVID positive and behave, and follow COVID precautions just as his does. He is given return precautions and questions have been answered to his apparent satisfaction Discharge Plan Departure Patient Disposition: Home Clinical Impression: COVID-19 Instructions: DI for COVID-19 (Suspected or Confirmed ) Activity Restrictions/Additional Instructions: *You have been diagnosed with [ COVID-19] *What to do: * per recommendations from the CDC and the [facility] Department of Health * stay home except to get medical care. Restrict activities outside your home, except for getting medical care. Do not go to work, school, or public areas. Avoid using public transportation, ride sharing, or taxis. * separate yourself from other people in your home. * call ahead before visiting your doctor * Wear a facemask * Cover your coughs and sneezes * Clean your hands often * Avoid sharing household items * Clean all high-touch services every day * Monitor your symptoms and seek prompt medical attention if your illness is worsening, particularly with difficulty in breathing. You may discontinue your isolation when: 1. You have been fever-free for at least 24 hours without the use of fever reducing medication, AND 2. Your symptoms are getting better, AND 3. At least 5 days have passed since symptoms first appeared 4. If you have fever, continue to stay home until fever resolves Individuals with laboratory confirmed COVID-19 who have not had any symptoms may discontinue home isolation when at least 5 days have passed since the date of t heir first COVID-19 diagnostic test and have had no subsequent illness You should notifiy any friends and family that have been in close contact *If up to date on COVID Vaccines, then they do not need to quarantine unless symptoms develop. Get tested on day 5 (or sooner if symptoms develop). Take precautions and watch for symptoms until day 10 *If NOT up to date on COVID Vaccines, then CDC recommends quarantine for at least 5 full days. Wear a well fitted mask at home if you must be around others. If they develop symptoms they should get tested. If they remain asymptomatic they should get tested on day 5. They should take precautions and monitor for symptoms until day 10. Prescriptions: No Action carvedilol 6.25 mg tablet 6.25 mg PO BID 0RF tamsulosin 0.4 mg capsule 0.4 mg PO DAILY 0RF buspirone 10 mg tablet 10 mg PO TID PRN (Reason: Anxiety) 0RF mirtazapine 15 mg tablet 15 mg PO BEDTIME 0RF metformin 500 mg tablet extended release 24 hr 1,000 mg PO BID 0RF finasteride 5 mg tablet 5 mg PO DAILY 0RF rosuvastatin 40 mg tablet 40 mg PO BEDTIME 0RF tadalafil 20 mg tablet 20 mg PO DAILY 0RF Archana Resendiz U-100 Insulin 100 unit/mL (3 mL) insulin pen 14 unit SUBCUT BID 0RF
[2021-11-26 20:27] VITALS: TEMP 37.1
--- NOTE | 2021-11-26 20:27 | PC.NURSE ---
Pt here with his , declines covid test r/t her results.
== END 2021-11-26 20:53 | disposition home or self-care (01) ==
PROVIDERS: Emergency Provider Emergency Medicine
DX: U07.1 COVID-19 (principal)
CPT/HCPCS: 99281

== ENCOUNTER 2022-01-03 07:45 | Emergency (ER) | payer MEDICARE, SELFPAY ==
[2022-01-03] VITALS (26 sets, daily range): BP systolic 128–203; BP diastolic 65–141; PULSE 58–89; RESP 14–27; TEMP 36.4; O2SAT 91–99; BMI 27.6
--- NOTE | 2022-01-03 07:59 | ED_ITS ---
HPI - Neuro Symptoms/Deficit General Chief Complaint: Altered Mental Status Stated Complaint: Thinks stroke Time Seen by Provider: 01/03/22 07:54 History of Present Illness HPI Narrative: Patient is a 81-year-old male with history of diabetes, hypertension, hyperlipidemia, presenting today with what he thinks is a stroke. Last known well was last night when he went to sleep. He woke up this morning thought he had some trouble walking he just felt really unsteady he feels like his speech is a little bit slower his notices that his speech is slower he does not have any obvious slurring. He then had some numbness around left side of mouth but no facial droop. His symptoms have overall improved but really his both of the more quite nervous that he might fall with the amount of unsteadiness he had. He has blurry vision at baseline but he has no new loss of vision. He de nies any chest pain or palpitations. He has not had any previous history of TIA or CVA. Related Data Home Medications Medication Instructions Recorded Confirmed buspirone 10 mg tablet 10 mg PO TID PRN Anxiety 06/09/21 06/09/21 carvedilol 6.25 mg tablet 6.25 mg PO BID 06/09/21 06/09/21 finasteride 5 mg tablet 5 mg PO DAILY 06/09/21 06/09/21 insulin glargine 100 unit/mL (3 14 unit SUBCUT BID 06/09/21 06/09/21 mL) subcutaneous pen (Lantus Solostar U-100 Insulin) metformin 500 mg tablet,extended 1,000 mg PO BID 06/09/21 06/09/21 release 24 hr mirtazapine 15 mg tablet 15 mg PO BEDTIME 06/09/21 06/09/21 rosuvastatin 40 mg tablet 40 mg PO BEDTIME 06/09/21 06/09/21 tadalafil 20 mg tablet 20 mg PO DAILY 06/09/21 06/09/21 tamsulosin 0.4 mg capsule 0.4 mg PO DAILY 06/09/21 06/09/21 Allergies Allergy/AdvReac Type Severity Reaction Status Date / Time No Known Drug Allergies Allergy Verified 06/09/21 10:59 Review of Systems Review of Systems Narrative: GENERAL: Denies chills, fatigue, malaise, fever, sweats, travel HEENT: Denies sinus pain, ear pain, sore throat, difficulty swallowing, neck pain RESPIRATORY: Denies dyspnea, cough, wheezing, hemoptysis, sputum. CARDIOVASCULAR: Denies chest pain, palpitations, orthopnea, edema GASTROINTESTINAL: Denies nausea, vomiting, abdominal pain, diarrhea, constipation, melena. : Denies dysuria, frequency, incontinence, hematuria, urinary retention, flank pain. MUSCULOSKELETAL: Denies weakness, joint pain, or bony pain SKIN: No rash, no erythema, no pruritus NEUROLOGIC: See HPI PSYCHIATRIC: No concerning psychosocial issues. 12 point review of systems is negative except for those stated above and HPI Patient History Medical History No pertinent past medical history Surgical History H/O heart bypass surgery Social History Smoking Status: Never smoker Smoking Status: Never smoker alcohol intake frequency: 0-2 drinks per day Alcohol type: beer Substance Use Type: does not use Exam Initial Vital Signs Initial Vital Signs: Vital Signs Temperature 97.6 F 01/03/22 07:45 Pulse Rate 78 01/03/22 07:45 Respiratory Rate 18 01/03/22 07:45 Blood Pressure 178/86 H 01/03/22 07:45 Pulse Oximetry 95 01/03/22 07:45 Oxygen Delivery Method 01/03/22 07:45 GENERAL: Alert 81-year-old and in no acute distress. HEENT: Head atraumatic,EOMI, pupils reactive, face symmetric, moist mucous membranes CARDIOVASCULAR: Regular rate and rhythm without murmurs, rubs or gallops. RESPIRATORY: Breath sounds equal bilaterally, no wheezes rales or rhonchi. ABDOMEN: Soft, nontender. Normoactive bowel sounds all 4 quadrants. No guarding or rebound. EXTREMITIES: Normal range of motion, no clubbing or edema. Neurovascularly intact NEUROLOGICAL: Alert and oriented x4.Normal gait and speech. Cranial nerves II through XII grossly intact. Good iygmsd-mi-drhp, good cfeh-zm-lpjq, strength equal bilaterally, no dysarthria or aphasia, sensation in tact to soft touch bilaterally, no visual changes, no facial droop SKIN: Warm, dry, no laceration, no petechiae, no rashes or lesions. Scores NIH Stroke Scale Level of Conciousness: Alert, keenly responsive Ask month/age: Answers both questions correctly. Open/close eyes, close hand: Performs both tasks correctly Best gaze horizontal: Normal Visual camp: No visual loss Facial palsy: Normal symetrical movement Left arm drift: No drift for full 10 sec Right arm drift: No drift for full 10 sec Left leg drift: No drift for full 5 sec Right leg drift: No drift for full 5 sec Limb ataxia: Absent Sensory on face/arms/legs: Normal, no sensory loss Best language: No aphasia, normal Dysarthria: Normal Extinction or inattention: No abnormality Total NIH Stroke scale score: 0 Course Orders Ordered: ED Orders 01/03/22 11:26 COVID19 -Nasal RAPID/Pre-Proc Stat 01/03/22 12:34 Chest [XR chest 1V] Urgent Discontinued Medications Aspirin (Aspirin 81 Mg Chew Tab) 324 mg PO NOW ONE Stop: 01/03/22 11:01 Last Admin: 01/03/22 11:29 Dose: 324 mg Documented By: CARISA Carvedilol (Carvedilol 3.125 Mg Tablet) 6.25 mg PO NOW ONE Stop: 01/03/22 13:16 Last Admin: 01/03/22 14:09 Dose: 6.25 mg Documented By: CARISA(2) Carvedilol (Carvedilol 3.125 Mg Tablet) 6.25 mg PO BID BRITTANY Furosemide (Furosemide 40 Mg/4 Ml Vial) 20 mg IV NOW ONE Stop: 01/03/22 13:15 Last Admin: 01/03/22 13:44 Dose: 20 mg Documented By: CARISA(2) Vital Signs Vital signs: Vital Signs - 8 hr 01/03/22 10:47 01/03/22 10:48 01/03/22 10:48 Pulse Rate 63 60 Respiratory Rate Blood Pressure 176/109 H Pulse Oximetry 96 96 01/03/22 11:00 01/03/22 11:01 01/03/22 11:01 Pulse Rate 58 L 62 Respiratory Rate 22 22 Blood Pressure 181/101 H Pulse Oximetry 94 93 01/03/22 11:02 01/03/22 11:02 01/03/22 11:30 Pulse Rate 63 65 Respiratory Rate 22 22 Blood Pressure 180/92 H Pulse Oximetry 94 94 01/03/22 11:31 01/03/22 11:31 01/03/22 12:00 Pulse Rate 67 60 Respiratory Rate 22 21 Blood Pressure 189/141 H Pulse Oximetry 94 91 01/03/22 12:01 01/03/22 12:01 01/03/22 12:23 Pulse Rate 60 Respiratory Rate 22 21 Blood Pressure 183/88 H 181/79 H Pulse Oximetry 92 01/03/22 12:23 01/03/22 12:30 01/03/22 12:30 Pulse Rate 60 61 Respiratory Rate 27 H 26 H Blood Pressure 168/86 H Pulse Oximetry 96 92 01/03/22 13:00 01/03/22 13:01 01/03/22 13:01 Pulse Rate 77 77 Respiratory Rate 22 22 Blood Pressure 203/91 H Pulse Oximetry 01/03/22 13:31 01/03/22 13:31 01/03/22 14:09 Pulse Rate 76 89 Respiratory Rate 20 Blood Pressure 153/76 H 138/65 Pulse Oximetry 93 01/03/22 14:00 01/03/22 14:00 01/03/22 14:30 Pulse Rate 66 Respiratory Rate 22 Blood Pressure 128/65 172/80 H Pulse Oximetry 92 01/03/22 14:30 Pulse Rate 82 Respiratory Rate 20 Blood Pressure Pulse Oximetry MDM - Neuro Symptoms/Deficit Lab Data Result diagrams: 01/03/22 07:57 01/03/22 07:57 Labs: Lab Results 01/03/22 01/03/22 01/03/22 Range/Units 07:57 07:57 08:40 WBC 6.6 (4.5-11.0) X10^3/uL RBC 4.52 (4.5-5.9) X10^6/uL Hgb 15.1 (13.5-17.5) g/dL Hct 43.9 (41-53) % MCV 97.1 (80-100) fL MCH 33.3 (26-34) PG MCHC 34.3 (30-36) % RDW 12.9 (11.6-14.8) % Plt Count 236 (150-400) X10^3/uL Neut % (Auto) 65.2 (50-75) % Lymph % (Auto) 20.0 L (25-40) % [place] % (Auto) 11.0 (3-14) % Eos % (Auto) 2.9 (2-4) % Baso % (Auto) 0.9 (0-2) % Neut # (Auto) 4300 (6832-6226) /uL Lymph # (Auto) 1300 (5606-7993) /uL [place] # (Auto) 700 (0-900) /uL Eos # (Auto) 200 (0-450) /uL Baso # (Auto) 100 (0-100) /uL Sodium 140 (137-145) mmol/L Potassium 4.3 (3.4-5.1) mmol/L Chloride 102 (98-107) mmol/L Carbon Dioxide 34 H (22-32) mmol/L BUN 16 (9-20) mg/dL Creatinine 0.93 (0.66-1.25) mg/dL Estimated GFR > 60 (>60) mL/min BUN/Creatinine Ratio 17.2 (6-22) Glucose 166 H (80-110) mg/dL Calcium 9.5 (8.4-10.2) mg/dL Total Bilirubin 0.7 (0.2-1.3) mg/dL AST 23 (17-59) IU/L ALT 17 (<50) IU/L Alkaline Phosphatase 66 (38-126) U/L Total Creatine Kinase 68 (55-170) U/L CK-MB (CK-2) TNP CK-MB (CK-2) Rel Index TNP Troponin I < 0.012 (0.01-0.034) ng/mL Total Protein 6.9 (6.3-8.2) g/dL Albumin 4.2 (3.5-5.0) g/dL Globulin 2.7 (1.7-4.1) g/dL Albumin/Globulin Ratio 1.6 (1.0-2.8) Urine Color Urine Appearance Urine pH (4.5-8.0) Ur Specific [place] (1.000-1.035) Urine Protein (Negative) Urine Glucose (UA) (Negative) g/dL Urine Ketones (NEGATIVE) Urine Occult Blood (Negative) Urine Nitrate (Negative) Urine Bilirubin (NEGATIVE) Urine Urobilinogen (0.2) E.U./dL Ur Leukocyte Esterase (NEGATIVE) Urine RBC (0-5/HPF) Urine WBC (0-5/HPF) Urine Bacteria (None) Ur Culture Indicated? Micro UA Comment U Opiates 300ng/mL cut Negative (Negative) Ur Oxycodone Screen Negative (Negative) Urine Methadone Screen Negative (Negative) Ur Barbiturates Screen Negative (Negative) U Tricyclic Antidepress Negative (Negative) Ur Phencyclidine Scrn Negative (Negative) Ur Amphetamines Screen Negative (Negative) U Methamphetamines Scrn Negative (Negative) Ur MDMA Scrn (Ecstasy) Negative (Negative) U Benzodiazepines Scrn Negative (Negative) Urine Cocaine Screen Negative (Negative) U Marijuana (THC) Screen Negative (Negative) SARS-CoV-2 (PCR) (Negative) 01/03/22 01/03/22 Range/Units 08:43 11:26 WBC (4.5-11.0) X10^3/uL RBC (4.5-5.9) X10^6/uL Hgb (13.5-17.5) g/dL Hct (41-53) % MCV (80-100) fL MCH (26-34) PG MCHC (30-36) % RDW (11.6-14.8) % Plt Count (150-400) X10^3/uL Neut % (Auto) (50-75) % Lymph % (Auto) (25-40) % [place] % (Auto) (3-14) % Eos % (Auto) (2-4) % Baso % (Auto) (0-2) % Neut # (Auto) (8164-2666) /uL Lymph # (Auto) (8455-0344) /uL [place] # (Auto) (0-900) /uL Eos # (Auto) (0-450) /uL Baso # (Auto) (0-100) /uL Sodium (137-145) mmol/L Potassium (3.4-5.1) mmol/L Chloride (98-107) mmol/L Carbon Dioxide (22-32) mmol/L BUN (9-20) mg/dL Creatinine (0.66-1.25) mg/dL Estimated GFR (>60) mL/min BUN/Creatinine Ratio (6-22) Glucose (80-110) mg/dL Calcium (8.4-10.2) mg/dL Total Bilirubin (0.2-1.3) mg/dL AST (17-59) IU/L ALT (<50) IU/L Alkaline Phosphatase (38-126) U/L Total Creatine Kinase (55-170) U/L CK-MB (CK-2) CK-MB (CK-2) Rel Index Troponin I (0.01-0.034) ng/mL Total Protein (6.3-8.2) g/dL Albumin (3.5-5.0) g/dL Globulin (1.7-4.1) g/dL Albumin/Globulin Ratio (1.0-2.8) Urine Color Yellow Urine Appearance Clear Urine pH 5.0 (4.5-8.0) Ur Specific [place] 1.015 (1.000-1.035) Urine Protein Negative (Negative) Urine Glucose (UA) 1+ H (Negative) g/dL Urine Ketones Negative (NEGATIVE) Urine Occult Blood Negative (Negative) Urine Nitrate Negative (Negative) Urine Bilirubin Negative (NEGATIVE) Urine Urobilinogen 0.2 (0.2) E.U./dL Ur Leukocyte Esterase Negative (NEGATIVE) Urine RBC None seen (0-5/HPF) Urine WBC None seen (0-5/HPF) Urine Bacteria None seen (None) Ur Culture Indicated? Cult not indicated Micro UA Comment Microscopic normal U Opiates 300ng/mL cut (Negative) Ur Oxycodone Screen (Negative) Urine Methadone Screen (Negative) Ur Barbiturates Screen (Negative) U Tricyclic Antidepress (Negative) Ur Phencyclidine Scrn (Negative) Ur Amphetamines Screen (Negative) U Methamphetamines Scrn (Negative) Ur MDMA Scrn (Ecstasy) (Negative) U Benzodiazepines Scrn (Negative) Urine Cocaine Screen (Negative) U Marijuana (THC) Screen (Negative) SARS-CoV-2 (PCR) Negative (Negative) Point of Care Testing Glucose POC 222 Imaging Data CTA - brain/neck: Radiologist's Impression: CT Scan Report Signed Patient: Gil Aguilar MR#: [id number] : 1940 Acct:[id number] Age/Sex: 81 / M Date of Service: 01/03/22 Loc: ED Accession Number: [id number] ?? Procedure: CT angio head and neck Ordering Provider: Rosa Herrera D.O. PROCEDURE:? CT ANGIO HEAD AND NECK ? INDICATIONS:? difficulty walking and speech ? TECHNIQUE:? After the administration of intravenous contrast, 1 mm thick sections acquired from the aortic arch through the [place].? Post-contrast 4.5 mm thick sections then re-acquired from the foramen magnum to the vertex.? 3-dimensional xgcfuje-sorwjcfse-mpzupvcozz (MIP) and/or volume rendering reformats were acquired of the central intracranial vasculature and neck separately. For radiation dose reduction, the following was used:? automated exposure control, adjustment of mA and/or kV according to patient size.? ? COMPARISON:? Head CT 06/09/2021; MRI brain 05/02/2020 ? FINDINGS:? Image quality:? Excellent.? ? HEAD CT ANGIOGRAPHY:? Anterior circulation:? Mild atherosclerotic calcifications seen in the carotid siphons and in the carotid termini.? Visualized proximal branches of the middle and anterior cerebral arteries demonstrate no flow-limiting stenosis or occlusion. ? Posterior circulation:? Left greater than right V4 segment atherosclerotic calcifications without hemodynamically significant stenosis.? Basilar artery and posterior cerebral arteries are widely patent. ? NECK CT ANGIOGRAPHY:? Carotid system:? Standard 3 vessel aortic arch anatomy.? Atherosclerotic calc ifications at the aortic arch extending into the left subclavian and brachiocephalic artery.? Scattered atherosclerotic plaque and calcification along the distal common carotid arteries and at the carotid bifurcations without hemodynamically significant stenosis.? Mild calcification at the origin of the left greater than right internal carotid arteries, also without hemodynamically significant stenosis. ? Posterior circulation:? The origins of the vertebral arteries both appear widely patent.? The more superior extracranial portions of both vertebral arteries also demonstrate normal courses and calibers.? They join to form a normal appearing basilar artery.? ? Soft tissues:? Visualized neck soft tissues demonstrate no suspicious abnormalities.? ? Bones:? No suspicious bony lesions.? Visualized cervical spine appears normally aligned.? IMPRESSION:? ? No hemodynamically significant stenosis or occlusion of the major intracranial arterial circulation. ? Any quantitative measurements of stenosis were performed using NASCET criteria.? ? ? Dictated by: Ariel Lyman M.D. on 01/03/2022 at 8:36 ? ? Approved by: Ariel Lyman M.D. on 01/03/2022 at 8:40? MR head: Radiologist's Impression: Magnetic Resonance Report Signed Patient: Gil Aguilar MR#: [id number] : 1940 Acct:[id number] Age/Sex: 81 / M Date of Service: 01/03/22 Loc: ED Accession Number: [id number] ?? Procedure: MR head/brain wo con Ordering Provider: Rosa Herrera D.O. PROCEDURE:? MR HEAD/BRAIN WO CON ? INDICATIONS:? difficulty walking ? TECHNIQUE:? Non-contrast axial T1 spin echo, axial T2 fast spin echo, sagittal and axial FLAIR, coronal T2 fast spin echo, axial gradient echo, axial diffusion and ADC through the brain.? ? COMPARISON:? [facility], MR, MR BRAIN WITHOUT CONTRAST, 05/02/2020, 8:43.? [facility], CT, CT ANGIO HEAD AND NECK, 01/03/2022, 8:12. ? FINDINGS:? Image quality:? Partially degraded by motion artifact. ? CSF spaces:? Ventricles appear symmetric in size and shape.? Basal cisterns are patent.? No extra-axial fluid collections.? ? Brain:? No intracranial bleeds or mass effects.? There is cerebral volume loss for age.? There are periventricular and deep white matter chronic small vessel ischemic changes.? Brainstem appears normal.? Diffusion-weighted images show no acute ischemic insults.? No chronic ischemic insults.? Normal intravascular flow voids are present.? ? Skull and face:? Calvarial bone marrow is normal in signal.? Orbits are normal.? ? Sinuses:? Amount of right mastoid fluid.? Sinuses and mastoids are otherwise clear.? ? IMPRESSION:? 1. No acute process.? No recent infarct. 2. Volume loss and small vessel ischemic disease.? ? ? Dictated by: Charly Sexton M.D. on 01/03/2022 at 9:49 ? ? CT scan - head: Radiologist's Impression: CT Scan Report Signed Patient: Gil Aguilar MR#: [id number] : 1940 Acct:[id number] Age/Sex: 80 / M Date of Service: 06/09/21 Loc: ED Accession Number: [id number] ?? Procedure: CT head/brain wo con Ordering Provider: Rosa Herrera D.O. PROCEDURE:? CT HEAD/BRAIN WO CON ? INDICATIONS:? Confusion, now resolved ? TECHNIQUE:? Noncontrast 4.5 mm thick angled axial sections acquired from the foramen magnum to the vertex, with coronal and sagittal reformats.? For radiation dose reduction, the following was used:? automated exposure control, adjustment of mA and/or kV according to patient size.? ? COMPARISON:? [facility], MR, MR BRAIN WITHOUT CONTRAST, 05/02/2020, 8:43.? [facility], CT, CT HEAD WITHOUT CONTRAST, 04/30/2020, 10:54. ? FINDINGS:? Image quality:? Excellent.? ? CSF spaces:? Basal cisterns are patent.? No extra-axial fluid collections.? There is moderate cerebral volume loss, with resultant ventricular and sulcal prominence.? ? Brain:? No intracranial hemorrhage, mass, or mass effect.? There are subcortical, periventricular and deep white matter hypodensities consistent with moderate chronic small vessel ischemic changes.? The pena-white matter junction appears preserved.? There is intracranial internal carotid artery atherosclerosis.? ? Skull and face:? Calvarium and visualized facial bones appear intact, without suspicious lesions.? ? Sinuses:? Visualized sinuses and mastoids are clear.? ? IMPRESSION:? ? 1. No acute intracranial abnormality. ? 2. Moderate cerebral volume loss and chronic white matter small vessel ischemic changes.? Dictated by: Judson Foley M.D. on 06/09/2021 at 10:48 ? ? Chest x-ray: Radiologist's Impression: [place] [address] XRay Report Signed Patient: Gil Aguilar MR#: [id number] : 1940 Acct:[id number] Age/Sex: 81 / M Date of Service: 01/03/22 Loc: 90D-1 Accession Number: [id number] ?? Procedure: XR chest 1V Ordering Provider: Rosa Herrera D.O. PROCEDURE:? XR CHEST 1V ? INDICATIONS:? cva ? TECHNIQUE:? One view of the chest was acquired.? ? COMPARISON:? [facility], CR, XR CHEST 1V, 06/09/2021, 10:42. ? FINDINGS:? ? Surgical changes and devices:? Status post median sternotomy and CABG. ? Lungs and pleura:? Lungs are clear.? No pleural effusions or pneumothorax.? Mild bibasilar atelectasis is unchanged. ? Mediastinum:? Mediastinal contours appear normal.? Heart size is normal.? ? Bones and chest wall:? No suspicious bony lesions.? Overlying soft tissues appear unremarkable.? ? IMPRESSION:? No acute cardiopulmonary abnormality. ? ? Dictated by: Aris Infante M.D. on 01/03/2022 at 13:14 ? ? ECG Data Interpretation: Normal sinus rhythm rate 65 WA interval 154 QRS [address] changes is yet slightly low voltage similar to previous MDM Narrative Medical decision making narrative: Patient is only slightly unsteady on his walking into the emergency department. Obvious ataxia while walking but mild. Finger-nose and hybh-yl-vkuo are both good bilaterally and strong. I do not appreciate any word-finding difficulty or slurring of speech. Both he and his state that it is not quite normal. He has an NIH of 0. He is not a candidate for tPA last known well was last night. He has a low NIH with minimal disability Fortunately patient's head CT CT angio an MRI Stroke no stroke. Patient's symptoms have improved. Symptoms are actually concerning for a TIA. Patient has never had a TIA before he certainly has risk factors for it. Dr. Flores accepts patient Discharge Plan Departure Patient Disposition: Admitted as Observation Clinical Impression: Brain TIA
[2022-01-03 08:05] LABS: Add Manual Diff / Slide Review NO; Basophils Absolute Auto 100 /uL (0-100); Basophils Percent Auto 0.9 % (0-2); Eosinophils Absolute Auto 200 /uL (0-450); Eosinophils Percent Auto 2.9 % (2-4); Hematocrit 43.9 % (41-53); Hemoglobin 15.1 g/dL (13.5-17.5); Lymphocytes Absolute Auto 1300 /uL (1100-4500); Mean Corpuscular HGB Conc 34.3 % (30-36); Mean Corpuscular Hemoglobin 33.3 PG (26-34); Mean Corpuscular Volume 97.1 fL (80-100); Monocytes Absolute Auto 700 /uL (0-900); Neutrophils Absolute Auto 4300 /uL (1500-7000); Neutrophils Percent Auto 65.2 % (50-75); Platelet Count 236 X10^3/uL (150-400); Red Blood Cell Count 4.52 X10^6/uL (4.5-5.9); Red Cell Distribution Width 12.9 % (11.6-14.8); White Blood Cell Count 6.6 X10^3/uL (4.5-11.0)
[2022-01-03 08:17] LABS: Alanine Aminotransferase 17 IU/L (<50); Albumin 4.2 g/dL (3.5-5.0); Albumin Globulin Ratio 1.6 (1.0-2.8); Alkaline Phosphatase 66 U/L (38-126); Aspartate Aminotransferase 23 IU/L (17-59); BUN Creatinine Ratio 17.2 (6-22); Bilirubin Total 0.7 mg/dL (0.2-1.3); Blood Urea Nitrogen 16 mg/dL (9-20); Calcium 9.5 mg/dL (8.4-10.2); Carbon Dioxide 34 mmol/L (22-32); Chloride 102 mmol/L (98-107); Creatine Kinase 68 U/L (55-170); Estimated Glomerular Filt Rate > 60 mL/min (>60); Globulin 2.7 g/dL (1.7-4.1); Glucose 166 mg/dL (80-110); HEMOLYSIS < 15 (0-50); Potassium 4.3 mmol/L (3.4-5.1); Sodium 140 mmol/L (137-145); Total Protein 6.9 g/dL (6.3-8.2)
[2022-01-03 08:28] LABS: Troponin I < 0.012 ng/mL (0.01-0.034)
--- NOTE | 2022-01-03 08:28 | DI.CT.S_ITS ---
PROCEDURE: CT ANGIO HEAD AND NECK INDICATIONS: difficulty walking and speech TECHNIQUE: After the administration of intravenous contrast, 1 mm thick sections acquired from the aortic arch through the [place] of [place]. Post-contrast 4.5 mm thick sections then re-acquired from the foramen magnum to the vertex. 3-dimensional xiryhvr-apfwfbrae-qxuwcljwdx (MIP) and/or volume rendering reformats were acquired of the central intracranial vasculature and neck separately. For radiation dose reduction, the following was used: automated exposure control, adjustment of mA and/or kV according to patient size. COMPARISON: Head CT 06/09/2021; MRI brain 05/02/2020 FINDINGS: Image quality: Excellent. HEAD CT ANGIOGRAPHY: Anterior circulation: Mild atherosclerotic calcifications seen in the carotid siphons and in the carotid termini. Visualized proximal branches of the middle and anterior cerebral arteries demonstrate no flow-limiting stenosis or occlusion. Posterior circulation: Left greater than right V4 segment atherosclerotic calcifications without hemodynamically significant stenosis. Basilar artery and posterior cerebral arteries are widely patent. NECK CT ANGIOGRAPHY: Carotid system: Standard 3 vessel aortic arch anatomy. Atherosclerotic calcifications at the aortic arch extending into the left subclavian and brachiocephalic artery. Scattered atherosclerotic plaque and calcification along the distal common carotid arteries and at the carotid bifurcations without hemodynamically significant stenosis. Mild calcification at the origin of the left greater than right internal carotid arteries, also without hemodynamically significant stenosis. Posterior circulation: The origins of the vertebral arteries both appear widely patent. The more superior extracranial portions of both vertebral arteries also demonstrate normal courses and calibers. They join to form a normal appearing basilar artery. Soft tissues: Visualized neck soft tissues demonstrate no suspicious abnormalities. Bones: No suspicious bony lesions. Visualized cervical spine appears normally aligned. IMPRESSION: No hemodynamically significant stenosis or occlusion of the major intracranial arterial circulation. Any quantitative measurements of stenosis were performed using NASCET criteria. Dictated by: Ariel Lyman M.D. on 01/03/2022 at 8:36 Approved by: Ariel Lyman M.D. on 01/03/2022 at 8:40
--- NOTE | 2022-01-03 08:28 | DI.CT.S_ITS ---
PROCEDURE: CT HEAD/BRAIN WO CON INDICATIONS: slurred speech sudden onset TECHNIQUE: Noncontrast 4.5 mm thick angled axial sections acquired from the foramen magnum to the vertex, with coronal and sagittal reformats. For radiation dose reduction, the following was used: automated exposure control, adjustment of mA and/or kV according to patient size. COMPARISON: [facility], CT, CT ANGIO HEAD AND NECK, 01/03/2022, 8:12. FINDINGS: Image quality: Excellent. CSF spaces: Basal cisterns are patent. No extra-axial fluid collections. Ventricles are normal in size and shape. Brain: . Intracranial atherosclerosis. Moderate global cerebral volume loss and chronic microvascular ischemic changes. No acute intracranial hemorrhage. No findings of mass effect or midline shift. Fierro-white matter differentiation is maintained, without CT evidence of an acute large territory infarct. Skull and face: Calvarium and visualized facial bones are intact, without suspicious lesions. Sinuses: Visualized sinuses and mastoids are clear. IMPRESSION: No acute intracranial finding. Moderate global cerebral volume loss and chronic microvascular ischemic changes. Dictated by: Ariel Lyman M.D. on 01/03/2022 at 8:33 Approved by: Ariel Lyman M.D. on 01/03/2022 at 8:35
[2022-01-03 08:45] LABS: Appearance Urine UA CLEAR; Bilirubin Urine UA NEGATIVE (NEGATIVE); Color Urine UA YELLOW; Glucose Urine UA 1+ g/dL (Negative); Ketones Urine UA NEGATIVE (NEGATIVE); Leukocyte Esterase Urine UA NEGATIVE (NEGATIVE); Nitrite Urine UA NEGATIVE (Negative); Occult Blood Urine UA NEGATIVE (Negative); Protein Urine UA NEGATIVE (Negative); Specific Gravity Urine UA 1.015 (1.000-1.035); Urobilinogen Urine UA 0.2 E.U./dL (0.2)
[2022-01-03 08:49] LABS: UR Morphine/Opiate cutoff 300 Negative (Negative); Ur Creatinine Normal (Normal); Ur Specific Gravity Normal (Normal); Urine Amphetamines Negative (Negative); Urine Barbiturates Negative (Negative); Urine Benzodiazepines Negative (Negative); Urine Cocaine Negative (Negative); Urine MDMA Negative (Negative); Urine Methadone Negative (Negative); Urine Methamphetamines Negative (Negative); Urine Oxycodone Negative (Negative); Urine Phencyclidine Negative (Negative); Urine Tetrahydrocannabinol Negative (Negative); Urine Tricyclic Antidepressant Negative (Negative); Urine pH Normal (Normal)
[2022-01-03 08:51] LABS: RBC Urine None Seen (0-5/HPF); WBC Urine None Seen (0-5/HPF)
[2022-01-03 08:52] LABS: Bacteria Urine None Seen; Culture Indicated Urine Cult Not Indicated; Urine Comments Microscopic Normal
--- NOTE | 2022-01-03 09:02 | DI.MRI.S_ITS ---
PROCEDURE: MR HEAD/BRAIN WO CON INDICATIONS: difficulty walking TECHNIQUE: Non-contrast axial T1 spin echo, axial T2 fast spin echo, sagittal and axial FLAIR, coronal T2 fast spin echo, axial gradient echo, axial diffusion and ADC through the brain. COMPARISON: [facility], MR, MR BRAIN WITHOUT CONTRAST, 05/02/2020, 8:43. [facility], CT, CT ANGIO HEAD AND NECK, 01/03/2022, 8:12. FINDINGS: Image quality: Partially degraded by motion artifact. CSF spaces: Ventricles appear symmetric in size and shape. Basal cisterns are patent. No extra-axial fluid collections. Brain: No intracranial bleeds or mass effects. There is cerebral volume loss for age. There are periventricular and deep white matter chronic small vessel ischemic changes. Brainstem appears normal. Diffusion-weighted images show no acute ischemic insults. No chronic ischemic insults. Normal intravascular flow voids are present. Skull and face: Calvarial bone marrow is normal in signal. Orbits are normal. Sinuses: Amount of right mastoid fluid. Sinuses and mastoids are otherwise clear. IMPRESSION: 1. No acute process. No recent infarct. 2. Volume loss and small vessel ischemic disease. Dictated by: Charly Sexton M.D. on 01/03/2022 at 9:49 Approved by: Charly Sexton M.D. on 01/03/2022 at 9:51
[2022-01-03] MEDS: ASPIRIN 81 MG CHEW TAB 324 MG PO (11:29)
[2022-01-03 11:49] LABS: COVID19 -Nasal RAPID Negative (Negative)
--- NOTE | 2022-01-03 12:34 | DI.RAD.S_ITS ---
PROCEDURE: XR CHEST 1V INDICATIONS: cva TECHNIQUE: One view of the chest was acquired. COMPARISON: [facility], CR, XR CHEST 1V, 06/09/2021, 10:42. FINDINGS: Surgical changes and devices: Status post median sternotomy and CABG. Lungs and pleura: Lungs are clear. No pleural effusions or pneumothorax. Mild bibasilar atelectasis is unchanged. Mediastinum: Mediastinal contours appear normal. Heart size is normal. Bones and chest wall: No suspicious bony lesions. Overlying soft tissues appear unremarkable. IMPRESSION: No acute cardiopulmonary abnormality. Dictated by: Aris Infante M.D. on 01/03/2022 at 13:14 Approved by: Aris Infante M.D. on 01/03/2022 at 13:16
--- NOTE | 2022-01-03 13:13 | PC.NURSE ---
latest nipb md dr grover notified, orders to be placed by .
[2022-01-03] MEDS: FUROSEMIDE 40 MG/4 ML VIAL 20 MG IV (13:44)
[2022-01-03] MEDS: carvediloL 3.125 MG TABLET 6.25 MG PO (14:09)
== END 2022-01-03 14:48 | disposition admitted as inpatient to this hospital (09) ==
LOC: ED 11:12 → AC 12:31
PROVIDERS: Emergency Provider Emergency Medicine; PCP Internal Medicine; Referring Provider Emergency Medicine
DX: G45.9 Transient cerebral ischemic attack, unspecified (principal); Z20.822 Contact with and (suspected) exposure to COVID-19; R07.9 Chest pain, unspecified
CPT/HCPCS: 36415; 70450; 70496; 70498; 70551; 71045; 80053; 80305; 81001; 82550; 82962; 84484; 85025; 87635; 93005; 93010; 96374; 99285; C9803; J1940

== ENCOUNTER 2022-12-10 12:44 | Emergency (ER) | payer MEDICARE, SELFPAY ==
[2022-12-10 13:20] VITALS: BP 154/78; PULSE 78; RESP 14; TEMP 36.9; O2SAT 99
--- NOTE | 2022-12-10 13:30 | PC.NURSE ---
very tearful. States she was told she could come and drop her off as she no longer wants to live with him.
[2022-12-10 14:16] LABS: Add Manual Diff / Slide Review NO; Basophils Absolute Auto 100 /uL (0-100); Basophils Percent Auto 0.6 % (0-2); Eosinophils Absolute Auto 100 /uL (0-450); Hematocrit 47.8 % (41-53); Lymphocytes Absolute Auto 2000 /uL (1100-4500); Lymphocytes Percent Auto 16.8 % (25-40); Mean Corpuscular HGB Conc 33.5 % (30-36); Mean Corpuscular Hemoglobin 32.5 PG (26-34); Mean Corpuscular Volume 96.9 fL (80-100); Monocytes Absolute Auto 1200 /uL (0-900); Monocytes Percent Auto 10.3 % (3-14); Neutrophils Absolute Auto 8300 /uL (1500-7000); Neutrophils Percent Auto 71.3 % (50-75); Platelet Count 290 X10^3/uL (150-400); Red Blood Cell Count 4.93 X10^6/uL (4.5-5.9); Red Cell Distribution Width 13.1 % (11.6-14.8); White Blood Cell Count 11.7 X10^3/uL (4.5-11.0)
[2022-12-10 14:32] LABS: Alanine Aminotransferase 25 IU/L (<50); Albumin 4.4 g/dL (3.5-5.0); Albumin Globulin Ratio 1.5 (1.0-2.8); Alkaline Phosphatase 86 U/L (38-126); Aspartate Aminotransferase 32 IU/L (17-59); Bilirubin Total 0.7 mg/dL (0.2-1.3); Blood Urea Nitrogen 15 mg/dL (9-20); Calcium 9.5 mg/dL (8.4-10.2); Carbon Dioxide 30 mmol/L (22-32); Chloride 98 mmol/L (98-107); Estimated Glomerular Filt Rate > 60 mL/min (>60); Glucose 186 mg/dL (80-110); HEMOLYSIS 16 (0-50); Potassium 4.6 mmol/L (3.4-5.1); Sodium 136 mmol/L (137-145); Total Protein 7.4 g/dL (6.3-8.2)
[2022-12-10 15:40] LABS: Appearance Urine UA CLEAR; Bilirubin Urine UA NEGATIVE (NEGATIVE); Color Urine UA YELLOW; Glucose Urine UA TRACE g/dL (Negative); Ketones Urine UA NEGATIVE (NEGATIVE); Leukocyte Esterase Urine UA NEGATIVE (NEGATIVE); Nitrite Urine UA NEGATIVE (Negative); Occult Blood Urine UA NEGATIVE (Negative); Protein Urine UA NEGATIVE (Negative); Specific Gravity Urine UA <=1.005 (1.000-1.035); Urobilinogen Urine UA 0.2 E.U./dL (0.2)
[2022-12-10 15:50] LABS: Bacteria Urine None Seen; Culture Indicated Urine Cult Not Indicated; RBC Urine 0-1/HPF (0-5/HPF); Squamous Epithelial Cell Urine 0-1 /HPF (0-5/HPF); WBC Urine 0-1/HPF (0-5/HPF)
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
== END 2022-12-10 17:09 | disposition home or self-care (01) ==
PROVIDERS: Emergency Medicine; Emergency Provider Student in an Organized Health Care Education/Training Program; PCP Internal Medicine
DX: Z76.89 Persons encountering health services in other specified circumstances (principal); E11.9 Type 2 diabetes mellitus without complications; Z79.4 Long term (current) use of insulin; Z79.85 Long-term (current) use of injectable non-insulin antidiabetic drugs
CPT/HCPCS: 36415; 80053; 81001; 81003; 85025; 99283